=== PATIENT | female | born 1950 | race Caucasian/White ===

== ENCOUNTER 2023-11-08 08:25 | Day surgery (SDC) | payer BC, MEDICARE ==
[2023-11-08] MEDS ORDERED: Sodium Chloride 0.9% 1,000 ML IV SCH (09:00)
[2023-11-08] MEDS ORDERED: Propofol 200 MG/20 ML SDV ONE (09:54)
[2023-11-08] MEDS ORDERED: fentaNYL 100 MCG/2 ML SDV ONE (09:54)
[2023-11-08] MEDS ORDERED: Glycopyrrolate 0.2 MG/ML 2 ML SDV ONE (10:35)
== END 2023-11-08 12:02 | disposition home or self-care (01) ==
LOC: JP.SDS 08:25
PROVIDERS: ATTEND Surgery
DX: Z12.11 Encounter for screening for malignant neoplasm of colon (principal); Q43.8 Other specified congenital malformations of intestine
CPT/HCPCS: G0121; J2704; J3010; J3490; J7030